=== PATIENT | male | born 1960 | race Caucasian/White ===

== ENCOUNTER 2019-04-01 07:01 | Day surgery (SDC) | payer OTHER ==
[2019-04-01] MEDS: SOD CHLORIDE 0.9% 1,000 ML IV (08:00)
[2019-04-01] MEDS ORDERED: CEFAZOLIN 2 GM/50 ML (PMX) 50 ML IVPB (08:00)
[2019-04-01] MEDS ORDERED: LIDOCAINE 2% (MDV) 20 ML INJ (09:13)
[2019-04-01] MEDS ORDERED: MIDAZOLAM 1 MG/ML 2 ML INJ (09:27)
[2019-04-01] MEDS ORDERED: FENTAnyl 50 MCG/ML VIAL (09:27)
[2019-04-01] MEDS ORDERED: CEFAZOLIN 1 GM INJ (09:45)
[2019-04-01] MEDS: BUPIVACAINE 0.5% (SDV) 30 ML INJ (09:52)
[2019-04-01] MEDS ORDERED: DIPHENHYDRAMINE 50 MG INJ IV (10:00)
[2019-04-01] MEDS ORDERED: MEPERIDINE 25 MG INJ IV (10:00)
[2019-04-01] MEDS ORDERED: ONDANSETRON 4 MG INJ IV (10:00)
[2019-04-01] MEDS ORDERED: HYDROmorphONE 1 MG/5 ML IV SYRINGE IV ×2 (10:00)
[2019-04-01] MEDS ORDERED: FENTAnyl 50 MCG/ML VIAL IV (10:00)
[2019-04-01] MEDS ORDERED: HYDROCODONE/APAP (5/325) TAB PO (10:00)
== END 2019-04-01 11:33 | disposition home or self-care (01) ==
LOC: SDS 07:01
DX: D17.1 Benign lipomatous neoplasm of skin and subcutaneous tissue of trunk (principal); I10 Essential (primary) hypertension; E78.5 Hyperlipidemia, unspecified; I25.10 Atherosclerotic heart disease of native coronary artery without angina pectoris
CPT/HCPCS: 14000; 88307